=== PATIENT | female | born 2000 ===

== ENCOUNTER 2024-03-30 07:40 | Outpatient (CLI) | payer OTHER | END 2024-03-30 08:00 | disposition home or self-care (01) | LOC: PPH VACUNA 07:40 | PROVIDERS: ATTEND Emergency Medicine Pediatric Emergency Medicine | DX: Z23 Encounter for immunization (principal) ==

== ENCOUNTER → 2024-09-01 10:08 | Outpatient (CLI) | payer OTHER | END | disposition home or self-care (01) | LOC: LAB 10:08 | PROVIDERS: ATTEND Obstetrics & Gynecology | DX: Z34.80 Encounter for supervision of other normal pregnancy, unspecified trimester (principal) ==